=== PATIENT | female | born 1935 | race Caucasian/White ===

== ENCOUNTER 2017-06-05 14:35 | Inpatient (IN) ==
[2017-06-05] MEDS: DUONEB (A & A) INH SCH (17:19)
--- NOTE | 2017-06-05 17:23 | HISTORY AND PHYSICAL ---
PRIMARY CARE PHYSICIAN: Dr. Deshpande. CHIEF COMPLAINT: Sent by her primary care physician's office as a direct admit for urinary tract infection and hypoxia. HISTORY OF PRESENTING ILLNESS: This is an 82-year-old female who presents to [facility] as a direct admit from her primary care physician 's office. States that she had not been feeling well the past couple of days, had a persistent cough, felt short of breath. Talked to the nurse at her primary care's office yesterday afternoon, who stated if she was not feeling better today to call them back. This morning, she woke up, still with a dry, persistent cough, shortness of breath, and so she called the doctor's office, who stated for her to come in. Apparently, had some labs and urinalysis was found to have urinary tract infection in the office. When she arrived to the primary care physician's office, her O2 saturation was 96%, but, apparently, after a few minutes, dropped down to 74%. So she is being admitted as a direct admit for further evaluation and treatment. PAST MEDICAL HISTORY: Hypertension, coronary artery disease, GERD, hypothyroidism, chronic pain, hiatal hernia and atrial fibrillation. PAST SURGICAL HISTORY: Thyroidectomy. FAMILY HISTORY: Noncontributory. SOCIAL HISTORY: She currently lives alone. Denies any tobacco, alcohol, or illicit drug use. ALLERGIES: She has no known drug allergies. HOME MEDICATIONS: She takes BuSpar 7.5 mg p.o. b.i.d., Citracal plus D 1 p.o. b.i.d., Welchol 625 mg p.o. t.i.d., fish oil 1200 mg 1 p.o. b.i.d., Lasix 10 mg p.o. daily, Culturelle 1 p.o. daily, Synthroid 88 mcg p.o. daily, and Coumadin 1 mg p.o. at bedtime. We will verify her dose of her metoprolol, and hold her Tylenol and albuterol inhaler. LABORATORY DATA: We will obtain a CBC, a BMP, PT with INR, and a chest x-ray now. REVIEW OF SYSTEMS: She denied any fever, chills, blurred vision, dizziness, chest pain. She has had a productive cough, shortness of breath. Denied any constipation, diarrhea , burning or hurting with urination.General Examination: This is an 82-year-old female, who presents as a direct admit from her primary care physician's office, with a possible UTI and hypoxia after she came to see her primary care for shortness of breath and a cough and, on arrival, had an O2 saturation of 96%, but dropped down to 74% on room air. General: This is a 82- year-old female, who is lying in the bed and answers questions appropriately. HEENT: Normocephalic and atraumatic. Pupils are equal, round, reactive to light. Extraocular movements are intact. Oropharynx and nares are clear. Neck: Supple. Lungs: Decreased breath sounds throughout entire posterior lung nichols. She was noted to have a productive cough. Equal lung expansion and chest wall movement are noted. Heart: Regular rate and rhythm. No murmurs, rubs, or gallops. Abdomen: Soft, nontender, nondistended. Bowel sounds are present x4 quadrants. Extremities: No clubbing, cyanosis, or edema. Neurological: The cranial nerves 2 through 12 appear grossly intact. ASSESSMENT: 1. Urinary tract infection. 2. Hypoxia. 3. Hypertension. 4. Atrial fibrillation. PLAN: She is being admitted as a direct admit from her primary care physician' s office. Placed on telemetry, O2 per protocol, incentive spirometry, healthy heart diet. We will check an EKG now, a CBC, BMP, PT with INR, and a chest x-ray now. Place her on DuoNeb q.4 hours, Rocephin 1 g IV q.24. Continue her home medications, and further orders after reviewing her workup. We will also obtain a urinalysis. Dictated by SILVIA Christian for Cory Daigle MD cc: MD Jessica Ward CRNP Alexis R. Penot, MD pt examined, seen face to face, likely has bronchitis, has rales on exam in both lower lobes, may have pneumonia, and uti, so far not hypoxic will treat empirically with abx, also with afib with rvr, will treat with iv cardizem, and po cardizem and work up afib maybe a chronic diagnosis APENOT MTDD
--- NOTE | 2017-06-05 17:31 | EKG Report ---
Test Performed on : 06/05/2017 5:14:16 PM Test Reason : irregular heart beat Blood Pressure : / mmHG Vent. Rate : 099 BPM Atrial Rate : 078 BPM P-R Int : 000 ms QRS Dur : 068 ms QT Int : 338 ms P-R-T Axes : 000 -32 -20 degrees QTc Int : 433 ms Atrial fibrillation. Left axis deviation Nonspecific ST and T wave abnormality Abnormal ECG No previous ECGs available Confirmed by Castro Alvarado MD ([id number]) on 06/12/2017 7:02:46 PM
[2017-06-05] MEDS: ROCEPHIN 1 GM in NS 50 ML IV SCH (18:08)
[2017-06-05] MEDS: WELCHOL PO SCH ×2 (18:08→18:13)
[2017-06-05 18:43] LABS: INR 1.66 (0.86-1.15); PROTIME 20.9 Seconds (12.1-15.5)
[2017-06-05] MEDS ORDERED: TUSSIONEX LIQUID PO ONE (19:39)
[2017-06-05] MEDS ORDERED: ROBITUSSIN-AC PO PRN (19:40)
[2017-06-05] MEDS ORDERED: CARDIZEM IV ONE (19:41)
[2017-06-05] MEDS ORDERED: ZOFRAN IV PRN (19:45)
[2017-06-05] MEDS ORDERED: TYLENOL PO PRN (19:45)
[2017-06-05] MEDS: CITRACAL + D PO SCH (20:33)
[2017-06-05] MEDS: CARDIZEM PO SCH (20:33)
[2017-06-05] MEDS: FISH OIL CONCENTRATE PO SCH (20:33)
[2017-06-05] MEDS: COUMADIN PO SCH (20:33)
[2017-06-05] MEDS: BUSPAR PO SCH (20:33)
[2017-06-05 22:06] LABS: CK INDEX 1.1 (0.0-2.5); CK-MB 6.08 ng/mL (0.0-5.0)
[2017-06-06] MEDS: DUONEB (A & A) INH SCH (00:12)
[2017-06-06] MEDS: XOPENEX NEB INH SCH ×5 (00:13→22:09)
[2017-06-06] MEDS: CARDIZEM PO SCH ×4 (02:36→20:10)
--- NOTE | 2017-06-06 05:16 | EKG Report ---
Test Performed on : 06/06/2017 04:39:27 AM Test Reason : Blood Pressure : / mmHG Vent. Rate : 091 BPM Atrial Rate : 084 BPM P-R Int : 000 ms QRS Dur : 088 ms QT Int : 350 ms P-R-T Axes : 000 -31 -22 degrees QTc Int : 430 ms Atrial fibrillation. Left axis deviation Cannot rule out Anterior infarct , age undetermined Abnormal ECG When compared with ECG of 05-JUN-2017 17:14, (Unconfirmed) No significant change was found Unconfirmed Result
[2017-06-06 06:08] LABS: MANUAL DIFF NEEDED? NO
[2017-06-06 06:27] LABS: POTASSIUM 3.8 mmol/L (3.5-5.1)
[2017-06-06 06:32] LABS: BASO% 0.2 % (0.0-0.8); EOS# 0.04 X1000 (0.0-0.7); EOS% 0.4 % (0.0-10.0); HEMATOCRIT 42.4 % (37.0-47.0); IMM GRAN# 0.09 X1000 (0.0-0.04); IMM GRAN% 0.9 % (0.0-0.5); LYMPH# 1.03 X1000 (1.2-3.4); LYMPH% 10.7 % (20.5-51.1); MCH 30.2 PG (27-31); MCV 91.4 FL (81-99); MONO# 2.16 X1000 (0.11-0.59); MONO% 22.3 % (1.7-9.3); MPV 10.6 FL (7.4-10.4); NEUT% 65.5 % (42.2-75.2); PLT 181 X1000 (130-400); RBC 4.64 XMIL (4.2-5.4)
[2017-06-06 06:53] LABS: BILIRUBIN URINE NEGATIVE (NEGATIVE); BLOOD URINE 3+ (NEGATIVE); CLARITY SL. CLOUDY (CLEAR); COLOR YELLOW; GLUCOSE URINE NEGATIVE (NEGATIVE); LEUKOCYTES URINE 2+ (NEGATIVE); NITRITE URINE NEGATIVE (NEGATIVE); PROTEIN URINE 1+(30 mg/dL) mg/dL (NEGATIVE); SP GRAVITY URINE 1.015; URINE SOURCE CLEAN CATCH; UROBILINOGEN URINE NORMAL
[2017-06-06 06:55] LABS: URINE CULTURE PL NEEDED? YES; URINE EPITHELIAL CELLS <10 /HPF (<10); URINE WBC 20-40 /HPF (<10)
[2017-06-06 06:56] LABS: URINE RBC 20-40 /HPF (<10)
[2017-06-06 07:28] LABS: INR 1.65 (0.86-1.15); PROTIME 20.8 Seconds (12.1-15.5)
--- NOTE | 2017-06-06 07:54 | Diag Imaging Result Doc PS360 ---
EXAM: CHEST-2 VIEWS INDICATION: Pneumonia TECHNIQUE: 2 views COMPARISON: 02/28/2015 FINDINGS: Patient is rotated toward the right. There is a very large but stable hiatal hernia. There is suggestion of subsegmental atelectasis at the lung bases. There is possible trace effusion at the right lung base. The cardiac silhouette is stable. IMPRESSION: 1.Very large hiatal hernia. 2.Suggestion of bibasilar atelectasis and a likely trace right effusion. Electronically signed by Emeka Soto 06/06/2017 7:52 AM
[2017-06-06] MEDS: CITRACAL + D PO SCH ×2 (08:49→20:10)
[2017-06-06] MEDS: BUSPAR PO SCH ×2 (08:50→20:10)
[2017-06-06] MEDS: WELCHOL PO SCH ×3 (08:50→18:52)
[2017-06-06] MEDS: CULTURELLE PO SCH (08:50)
[2017-06-06] MEDS: FISH OIL CONCENTRATE PO SCH ×2 (08:50→20:10)
[2017-06-06] MEDS ORDERED: LASIX PO SCH (09:00)
[2017-06-06] MEDS ORDERED: SYNTHROID PO SCH (09:00)
--- NOTE | 2017-06-06 16:20 | ECHO REPORT ---
ORDER DATE: 06/06/2017 INTERPRETING PHYSICIAN: Dr. Blair Johnson. ECHOCARDIOGRAPHIC MEASUREMENTS: SUMMARY OF THE 2-DIMENSIONAL IMAGIN. Interventricular septum 1.4 cm. 2. Left ventricular posterior wall 1.0 cm. 3. Diastolic diameter 3 cm. 4. Aorta 3.8 cm. 5. Left atrium 3.8 cm. ECHOCARDIOGRAPHIC MEASUREMENTS: 1. Aortic valve leaflets were trileaflet. Calcified pulmonic valve was normal. Mitral valve was normal. Tricuspid valve was normal. There is significant biatrial enlargement. 2. Normal left ventricular cavity size. Concentric left ventricular hypertrophy. 3. Peak velocity across the aortic valve was 3.3 m/sec with a mean gradient of 22 mmHg. Aortic valve area 1.5 squared cm. There is [id number] aortic stenosis. There is no aortic regurgitation. There is mild mitral regurgitation. Mild tricuspid regurgitation. Peak velocity across the tricuspid valve was 2.7 m/sec. There is no pericardial effusion or obvious intracardiac mass or thrombus seen. There is hyperdynamic left ventricular systolic function. cc: MD Cory Lopes MD
[2017-06-06] MEDS: ULTRAM PO PRN ×2 (16:59→22:57)
[2017-06-06] MEDS: ROCEPHIN 1 GM in NS 50 ML IV SCH (17:15)
[2017-06-06] MEDS ORDERED: TESSALON PO PRN (17:41)
--- NOTE | 2017-06-06 18:12 | PROGRESS NOTE ---
DATE: 06/06/2017 SUBJECTIVE: Patient has no focal complaints except for shortness of breath persists. She feels like her breathing is a bit better. OBJECTIVE: Vital signs: Blood pressure 126/68, heart rate 71, respiratory rate 18, temperature 98.1 degrees, 97% on 1 L. Cardiovascular: Regular rate and rhythm. Pulmonary: Bilateral breath sounds. Diminished at the bases, a little bit more right than left. GI: Soft, nontender, nondistended. Bowel sounds are positive. LABORATORY DATA: Normal white count. INR was 1.6. Basic was normal. Micro was normal. Urine just showed right lower lobe infiltrate with effusion. Echo showed mild to moderate aortic stenosis and left ventricular hypertrophy. ASSESSMENT: This is an 82-year-old female with history of hypertension and CAD, presenting with pneumonia. 1. Right lower lobe pneumonia. We will continue empiric antibiotics. She is on Rocephin and doxycycline and breathing treatments. We will add Atrovent and follow. 2. Atrial fibrillation with rapid ventricular response. She is now rate controlled on Cardizem. We will get cardiology input as she has aortic stenosis as well. I am not entirely sure this may not be part of her dyspnea because it has been a slow progressive dyspnea on exertion. DISPOSITION: She really wants to go home tomorrow. I think that probably could be managed. We will continue to follow and hopefully anticipate discharge tomorrow. cc: Cory Daigle MD
[2017-06-06] MEDS: COUMADIN PO SCH (20:10)
[2017-06-06] MEDS: ATROVENT NEB INH SCH (22:09)
[2017-06-07] MEDS: CARDIZEM PO SCH ×2 (02:11→08:18)
[2017-06-07] MEDS: ATROVENT NEB INH SCH ×2 (04:27→10:39)
[2017-06-07] MEDS: XOPENEX NEB INH SCH ×2 (04:27→10:39)
[2017-06-07 05:51] LABS: HEMATOCRIT 38.7 % (37.0-47.0); HEMOGLOBIN 12.8 g/dL (12.0-16.0); MCH 30.2 PG (27-31); MCHC 33.1 g/dL (33-37); MCV 91.3 FL (81-99); MPV 10.1 FL (7.4-10.4); RBC 4.24 XMIL (4.2-5.4)
[2017-06-07 06:13] LABS: CALCIUM 8.8 mg/dL (8.8-10.2)
[2017-06-07 07:26] VITALS: BP 102/62
[2017-06-07] MEDS ORDERED: SYNTHROID PO SCH (07:30)
--- NOTE | 2017-06-07 08:04 | Diag Imaging Result Doc PS360 ---
EXAM: CT THORAX W/O CONTRAST - 06/07/2017 HISTORY: pneumonia/large hiatal hernia TECHNIQUE: Without contrast per request the referring provider. COMPARISON: Chest radiographs of 06/06/2017 FINDINGS: There is a very large hiatal hernia. The hernia contains most or all stomach and part of the pancreas. There is partial atelectasis of the right lower lobe. At least some of the atelectasis appears to be due to compression by the hiatal hernia. There is mild atelectasis along the medial left lower lobe, possibly related to compression from the hilum hernia and tortuous descending aorta. The remainder lungs appear clear. There is no substantial pleural effusion or pneumothorax identified. There are nonspecific small mediastinal lymph nodes. IMPRESSION: Very large hiatal hernia. Partial atelectasis of the right lower lobe, at least some which appears to relate to compression by the hiatal hernia. Mild atelectasis along the medial left lower lobe. Electronically signed by Geovany Jefferson 06/07/2017 8:01 AM
[2017-06-07] MEDS: WELCHOL PO SCH ×2 (08:18→11:55)
--- NOTE | 2017-06-07 09:02 | CONSULTATION ---
DATE OF CONSULTATION: 06/07/2017 REQUESTING PHYSICIAN: Hospitalist Service. REASON FOR CONSULTATION: Abnormal echo findings and atrial fibrillation. CHIEF COMPLAINT: Cough. HISTORY OF PRESENT ILLNESS: Ms. Ellison is a pleasant 82-year-old female patient of Dr. Kate Deshpande. She presented to Dr. Deshpande's office on the day of her hospital admission with complaints of increasing cough productive of phlegm associated with some back pain on the left side and a generalized feeling of malaise. Upon presentation to Dr. Deshpande's they did a urinalysis that was apparently abnormal, possible urinary tract infection, and she was sent for admission to [facility]. At the time of presentation to [facility] they did an EKG that showed atrial fibrillation with a rapid response. They put her on Cardizem which has helped. They did an echocardiogram because they noted a heart murmur and the echocardiogram reported by Dr. Johnson on 06/06/2017 shows a calcified aortic valve with a mean gradient of 22 mmHg, valve area of 1.5 cm2 consistent with [id number] aortic stenosis, no aortic regurgitation, and normal hyperdynamic left ventricular systolic function. The patient denies having chest pains as such. She admits to having some dizziness from time to time. She has not had syncope. She denies having any significant edema. Right now she is feeling somewhat better than a couple of days ago. I am seeing her on 06/07/2017. PAST MEDICAL HISTORY: Positive for hypertension. She had atrial fibrillation for a long time. She also admits to having a history of a hiatal hernia. She has had gastric reflux and hypothyroidism. PAST SURGICAL HISTORY: She had cataract surgery. She has had a hemorrhoidectomy and thyroidectomy. FAMILY HISTORY: Her mother had an aneurysm. Her father had a stroke. They in their old age. SOCIAL HISTORY: She is a . She has had four children. The oldest one of cancer in his 30s or 40s. She has never been a smoker nor a drinker. 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 ALLERGIES: Neurontin and aloe-based creams or preparations. HOME MEDICATION: Home medications listed calcium citrate twice a day, lactobacillus daily, Skelaxin 800 mg as needed, buspirone 7.5 mg twice a day, Welchol 625 mg three times a day, fish oil twice a day, furosemide 10 mg daily, levothyroxine 80 mcg daily, warfarin 1 mg at bedtime, metoprolol 25 mg daily, and albuterol inhaler. REVIEW OF SYSTEMS: The patient has been known to have atrial fibrillation for a long time. She has been taking Coumadin. She also says that at some point she had some sort of electrophysiology study. She has had previous stress testing in 2013 that showed no perfusion abnormalities. She had an echocardiogram also back in 2013 that showed mild aortic stenosis. No other serious issues. PHYSICAL EXAMINATION: VITAL SIGNS: Blood pressure is 131/75, temperature 97.4, pulse 87, and respirations 18. GENERAL: Elderly and very hard of hearing. HEENT: Unremarkable. NECK: Jugular vein is not distended. CHEST: Diminished breath sounds at both bases. No definite rales were noted. CARDIOVASCULAR: Heart sounds are irregularly irregular with a loud systolic murmur over the aortic area, 2-3/6. No gallop is noted. ABDOMEN: The abdomen is obese. Nontender. EXTREMITIES: The extremities show trace brawny edema. Some tiny varicose veins in both legs. Pulses are slightly diminished in the legs. NEUROLOGICAL: She follows commands and moves all extremities. LABORATORY DATA: Blood work on admission: Sodium is 136, potassium 3.8, BUN 20, creatinine 1, CK 540, CK-MB 6.08, and troponin less than 0.010. Her chest x-ray on admission is reported as showing a very large hiatal hernia and suggestion of bibasilar atelectasis, likely trace right effusion. Her INR was 1.65 on 06/06/2017. Potassium today is down to 3. EKG done on 06/06/2017 at 4:39 in the morning shows atrial fibrillation and low voltage left axis. IMPRESSION: 1. Patient with chronic atrial fibrillation. She is on long-term anticoagulation with Coumadin. She had a rapid response upon presentation because of acute illness; this is better. 2. Aortic stenosis, [id number]. This is slightly progressive compared to 2013. 3. Possible acute pneumonia in the left lung. 4. Large hiatal hernia with likely increased risk for aspiration pneumonia. 5. Hypothyroidism. 6. History of hypertension. RECOMMENDATIONS: From a cardiology viewpoint I fully agree with your management. The atrial fibrillation and the aortic stenosis are not new findings. We do not need to do anything different for those two conditions. She should probably make an appointment to see us in 6 months from now at the office for a follow-up on the aortic stenosis. At this time I would suggest to consider doing a CT scan of the chest to better define the parenchymal lung involvement and hiatal hernia. That probably has more to do with her shortness of breath and cough than anything else. Please call me if you have any questions. cc: Young Granados MD
[2017-06-07] MEDS: CITRACAL + D PO SCH (09:42)
[2017-06-07] MEDS: CULTURELLE PO SCH (09:42)
[2017-06-07] MEDS: FISH OIL CONCENTRATE PO SCH (09:42)
[2017-06-07] MEDS: BUSPAR PO SCH (09:42)
[2017-06-07] MEDS ORDERED: KLOR-CON PO ONE (09:48)
--- NOTE | 2017-06-08 14:42 | DISCHARGE SUMMARY ---
ADMISSION DATE: 06/05/2017 DISCHARGE DATE: 06/07/2017 ADMISSION DIAGNOSES: 1. Urinary tract infection. 2. Hypoxia. 3. Hypertension. 4. Chronic atrial fibrillation. DISCHARGE DIAGNOSES: 1. Urinary tract infection. 2. Hypoxia. 3. Hypertension. 4. Chronic atrial fibrillation. 5. Community-acquired pneumonia. 6. Aortic stenosis. CONSULTATIONS: Dr. Young Granados with Cardiology. DIAGNOSTIC PROCEDURES AND FINDINGS: EKG on 06/05/2017 shows atrial fibrillation , rate controlled at 99 beats per minute. Nonspecific ST changes. Chest x-ray, 06/06/2017 very large hiatal hernia suggestion of bibasilar atelectasis and trace right effusion. Echocardiogram significant biatrial enlargement. Concentric LVH. Mild to moderate . Mild MR, mild TR. Hyperdynamic LV systolic function. No pericardial effusion. Chest CT on 2016 very large hiatal hernia. Partial atelectasis of the right lower lobe at least some which appears to relate to compression by hiatal hernia. Mild atelectasis along the left medial lobe, left lower medial lobe. HOSPITAL COURSE: Mrs. Ellison is an 82-year-old female, who was directly admitted from Dr. Kate Deshpande's office with cough, shortness of breath. When she came to Dr. Deshpande's office she did drop her O2 sats into the 70s and was directly admitted to our facility. After she got to the floor she was noted to be in atrial fibrillation which is chronic. She did have question of atelectasis on the chest x-ray and UTI so she was started on antibiotics. Ultimately we did check an echocardiogram and saw the patient had aortic stenosis and we consulted Cardiology. Cardiology reports that this is a chronic condition as well as her atrial fibrillation and suggested a chest CT which did show question of pneumonia. Again antibiotics had already been initiated. Patient improved on a day-to-day basis. Her INR was noted to be subtherapeutic so today we increased her INR on discharge. Overall she is feeling well. She is walking around the unit without hypoxia and she is now stable for discharge. MEDICATIONS: Tramadol every 6 hours as needed for pain. Combivent Respimat inhaler every 6 hours. Robitussin AC 10 mL p.o. q.4 hours. Omnicef 300 mg p.o. b.i.d. Cardizem CD 120 mg daily. Citracal D 1 b.i.d. Culturelle 1 daily. Synthroid 88 mcg p.o. daily. BuSpar 7.5 mg b.i.d. Fish oil 1 p.o. b.i.d. Lasix 10 mg daily. Skelaxin 800 mg as needed. Coumadin 1 mg at bedtime. DISCHARGE LABS: WBC 6.77, hemoglobin 12.8, hematocrit 38.7, platelet count 190, 000. Sodium 133, potassium 3.0, chloride 95, CO2 26, anion gap 25. BUN 25, creatinine 0.9 , glucose is 121. Mag 2.0. PHYSICAL EXAMINATION: General: This is an overweight and elderly female lying in hospital bed. No acute distress. Neurologic: Awake alert, and oriented. Follows commands without focal deficits. HEENT: Head is atraumatic, normocephalic. Pupils equal, round, reactive to light. Oral mucosa is moist. Trachea is midline. Neck is supple. Chest: Clear to auscultation bilaterally. CV: Irregular rate and rhythm. 2-3/6 systolic ejection murmur noted. GI: Soft, nondistended, nontender. Bowel sounds positive. Extremities: No edema, clubbing or cyanosis. Pulses palpable bilaterally. DISCHARGE DIET: Heart healthy. DISCHARGE ACTIVITY: Resume activity as tolerated. DISCHARGE INSTRUCTIONS: Patient is discharged home to self-care. She is to follow up with Dr. Deshpande within the week and Dr. Johnson as needed. She is to continue all medications. She is to return to the ER or call 911 for worsening complaints or concerns. All questions have been answered. Discharge time is greater than 35 minutes. Dictated by SILVIA Richardson for Cory Daigle MD cc: SILVIA Richardson MD Emily M. McClure, MD Luis N. Villanueva, MD Ashish K. Basu, MD pt examined, pt has no major complaints, desperately wants to go home; her breathing is improved; will treat for bronchitis and have her followup [facility]
== END 2017-06-07 13:01 | disposition home or self-care (01) ==
LOC: P.DIRADM 14:35 → P.MEDSURG 14:38
PROVIDERS: ATTEND Internal Medicine